=== PATIENT | female | born 1985 | race Two or more races ===

== ENCOUNTER 2018-07-24 05:56 | Day surgery (SDC) | payer OTHER ==
[~2018-07-24] VITALS: Ht 167.6 cm; Wt 71.7 kg
[2018-07-24] VITALS (12 sets, daily range): BP systolic 96–119; BP diastolic 57–84
[2018-07-24 06:44] LABS: APPEARANCE,URINE CLEAR; BILIRUBIN, URINE NEGATIVE (NEGATIVE); COLOR,URINE PALE YELLOW; GLUCOSE, URINE (UA) NEGATIVE (NEGATIVE); KETONES,URINE NEGATIVE (NEGATIVE); LEUKOCYTE ESTERASE ,URINE NEGATIVE (NEGATIVE); NITRITE,URINE NEGATIVE (NEGATIVE); PH,URINE 5 (4.5-8.0); PROTEIN,URINE 1+ (NEGATIVE); UROBILINOGEN,URINE NORMAL MG/DL (0.0-1.0)
[2018-07-24] MEDS ORDERED: NKM (06:49)
[2018-07-24] MEDS ORDERED: Bacitracin Oint 15gm Tube TOPIC ONE (06:55)
[2018-07-24] MEDS ORDERED: Bacitracin 50000 Units Vial ONE (06:56)
[2018-07-24] MEDS ORDERED: Lidocaine 1% 10mg/ml/Epi 0.005mg/ml 30ml vial INJ ONE ×2 (06:57→07:47)
--- NOTE | 2018-07-24 07:09 | Pre-Procedure Note/Attestation ---
Pre-Procedure Note/Attestation Complete Prior to Procedure Planned Procedure: bilateral Indications for Procedure Pre-Operative Diagnosis: Left breast capsular contracture Attestation I attest that I discussed the nature of the procedure; its benefits; risks and complications; and alternatives (and the risks and benefits of such alternatives ), prior to the procedure, with the patient (or the patient's legal fuels sales representative). I attest that, if there was a reasonable possibility of needing a blood transfusion, the patient (or the patient's legal fuels sales representative) was given the [facility] standardized written summary, pursuant to the Azam Catia Blood Safety Act ([place] Health and Safety Code # 1645, as amended). I attest that I re-evaluated the patient just prior to the surgery and that there has been no change in the patient's H&P, except as documented below: David Anthony MD Jul 24, 2018 07:09
[2018-07-24] MEDS ORDERED: Midazolam 2mg/2ml Inj ONE (07:14)
[2018-07-24] MEDS ORDERED: Morphine Sulfate 10mg/ml Inj ONE (07:14)
[2018-07-24] MEDS ORDERED: ProvayBlue 5mg/ml 10ml amp INJ ONE (07:15)
[2018-07-24] MEDS ORDERED: Succinylcholine 20mg/ml 10ml vial ONE (07:22)
[2018-07-24] MEDS ORDERED: Lidocaine 1% MPF 10mg/ml 5ml ONE (07:49)
[2018-07-24] MEDS ORDERED: Metoclopramide 10mg/2ml Inj ONE (07:49)
[2018-07-24] MEDS ORDERED: Propofol 200mg/20ml IV ONE (07:49)
--- NOTE | 2018-07-24 08:27 | Anethesia Preoperative Eval ---
Anesthesia Pre-op PMH/ROS General Date of Evaluation: Jul 24, 2018 Time of Evaluation: 07:20 Anesthesiologist: valentina ASA Score: ASA 1 Mallampati Score Class I : Soft palate, uvula, fauces, pillars visible Class II: Soft palate, uvula, fauces visible Class III: Soft palate, base of uvula visible Class IV: Only hard plate visible Mallampati Classification: Class II Surgeon: matt Diagnosis: breast trauma Surgical Procedure: left breast capsulectomy with rmoval of cristopher brast Anesthesia History: none Allergies: Coded Allergies: No Known Allergies (Unverified , 07/24/18) Medications: see eMAR Patient NPO?: Yes NPO Date: Jul 23, 2018 NPO Time: 23:59 Past Medical History Cardiovascular: Denies: HTN, CAD, VA, valve dz, arrhythmia, other Pulmonary: Denies: asthma, COPD, MUKUND, other Gastrointestinal/Genitourinary: Denies: GERD, CRI, ESRD, other Neurologic/Psychiatric: Denies: dementia, CVA, depression/anxiety, TIA, other Endocrine: Denies: DM, hypothyroidism, steroids, other HEENT: Denies: cataract (L), cataract (R), glaucoma, GRAND TRAVERSE (L), GRAND TRAVERSE (R), other Hematology/Immune: Denies: anemia, DVT, bleeding disorder, other Musculoskeletal/Integumentary: Denies: OA, RA, DJD, DDD, edema, other PSxH Narrative: breast aug Anesthesia Pre-op Phys. Exam Physician Exam Last Vital Signs Date Time Temp Pulse Resp B/P (MAP) Pulse Ox O2 Delivery O2 Flow Rate FiO2 07/24/18 06:47 97.7 88 18 119/84 98 Room Air Constitutional: NAD Neurologic: CN 2-12 intact Cardiovascular: RRR Respiratory: CTA Gastrointestinal: S/NT/ND Airway Exam Mallampati Classification 2 Mallampati Score: Class II MO: full Neck: normal TMD: 3fb ROM: full Dentures: no upper, no lower Anesthesia Pre-op A/P Labs Urine Test Test 07/24/18 06:10 Urine HCG, Qualitative Negative (NEGATIVE) Studies Pre-op Studies: EKG - sr Risk Assessment & Plan Plan: general Status Change Before Surgery: No Pre-Antibiotics Drug: ancef Given Within 1 Hr of Incision: Yes Time Given: 07:30 Cassandra Lamb [employer] Jul 24, 2018 08:27
[2018-07-24] MEDS ORDERED: fentaNYL 100 mcg/2 mL IV PRN (08:30)
[2018-07-24] MEDS ORDERED: Metoclopramide 10mg/2ml Inj IVP PRN (08:30)
[2018-07-24] MEDS ORDERED: Zemuron 50mg/5ml Inj IV ONE ×2 (09:39→10:57)
[2018-07-24] MEDS ORDERED: Morphine Sulfate PF 10 ML ONE (09:48)
[2018-07-24] MEDS ORDERED: Bupivacaine 0.5% Inj 30 ml vial INJ ONE (11:15)
[2018-07-24] MEDS ORDERED: Neostigmine 1mg/ml 10ml Inj ONE (12:26)
[2018-07-24] MEDS ORDERED: Glycopyrrolate 0.2mg/ml 1ml Vial ONE (12:26)
[2018-07-24] MEDS ORDERED: ePHEDrine 50mg/ml Inj ONE (12:26)
[2018-07-24] MEDS ORDERED: fentaNYL 100 mcg/2 mL IV ONE (12:56)
--- NOTE | 2018-07-24 13:08 | Immediate Post-Op Evaluation ---
Immediate Post-Op Evalulation Immediate Post-Op Evalulation Procedure: bilateral breast revision; left breast capsulectomy Date of Evaluation: Jul 24, 2018 Time of Evaluation: 13:00 IV Fluids: 1000 Blood Products: 0 Estimated Blood Loss: 15 Blood Pressure Systolic: 110 Blood Pressure Diastolic: 64 Pulse Rate: 83 Respiratory Rate: 14 O2 Sat by Pulse Oximetry: 100 Temperature (Fahrenheit): 97.9 Pain Score (1-10): 5 Nausea: No Vomiting: No Complications none Patient Status: awake, reacts, patent Hydration Status: adequate Drug: ancef Given Within 1 Hr of Incision: Yes Time Given: 07:30 Cassandra Lamb CRNA Jul 24, 2018 13:08
--- NOTE | 2018-07-24 13:10 | Brief Operative Note ---
Immediate Post Operative Note Operative Note Pre-op Diagnosis: Left breast capsular contracture Procedure: Removal of bilateral subglandular silicone implants, bilateral total capsulectomies, placement of new saline implants in subpectoral pocket with closure of subglandular pockets. Post-op Diagnosis: Left grade 3 capsular contracture, right grade 2 capsular contracture Surgeon: Raj Anesthesiologist: Cassandra Justice Anesthesia: general Specimen: yes Complications: none Condition: stable Fluids: [id number] F Estimated Blood Loss: minimal Drains: none Implant(s) used?: No David Anthony MD Jul 24, 2018 13:10
[2018-07-24] MEDS ORDERED: Hydromorphone 0.5mg/0.5ml inj IVP SCH (14:15)
[2018-07-24] MEDS ORDERED: Hydromorphone 0.5mg/0.5ml inj IVP PRN (14:15)
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
[2018-07-27 06:58] VITALS: BP 109/76
--- NOTE | 2018-07-27 06:58 | 48 Hour Post Anesthesia Eval ---
Post Anesthesia Evaluation Procedure: bilateral breast revision; left breast capsulectomy Date of Evaluation: Jul 27, 2018 Time of Evaluation: 06:57 Blood Pressure Systolic: 109 0: 76 Pulse Rate: 95 Respiratory Rate: 14 Temperature (Fahrenheit): 97.1 O2 Sat by Pulse Oximetry: 98 Airway: patent Nausea: No Vomiting: No Hydration Status: adequate Cardiopulmonary Status: stable Mental Status/LOC: patient returned to baseline Post-Anesthesia Complications: na Follow-up care needed: N/A Cassandra Lamb CRNA Jul 27, 2018 06:58
== END 2018-07-24 13:55 | disposition home or self-care (01) ==
LOC: SUR 05:56
DX: T85.44XA Capsular contracture of breast implant, initial encounter (principal); Y83.8 Other surgical procedures as the cause of abnormal reaction of the patient, or of later complication, without mention of misadventure at the time of the procedure; Y92.009 Unspecified place in unspecified non-institutional (private) residence as the place of occurrence of the external cause; Z87.891 Personal history of nicotine dependence
CPT/HCPCS: 19340; 19371; 81003; 81025; J0330; J0690; J1170; J2250; J2270; J2274; J2405; J2704; J2710; J2765; J3010; L8600; 94003; 94150